=== PATIENT | male | born 1965 | race Caucasian/White ===

== ENCOUNTER 2017-02-21 17:59 | Emergency (ER) | payer BC ==
[~2017-02-21] VITALS: Ht 172.7 cm; Wt 102.1 kg
[~2017-02-21 17:59] MED LIST: VICODIN ES 7501 TAB PO
== END 2017-02-21 20:23 | disposition home or self-care (01) ==
LOC: ED 17:59
DX: M79.652 Pain in left thigh (principal); F10.10 Alcohol abuse, uncomplicated

== ENCOUNTER 2017-04-04 10:07 | Emergency (ER) | payer BC ==
[~2017-04-04] VITALS: Ht 172.7 cm; Wt 102.1 kg
[2017-04-04] MEDS ORDERED: NAPROSYN500 MG PO (11:54)
== END 2017-04-04 12:05 | disposition home or self-care (01) ==
LOC: ED 10:07
DX: M25.562 Pain in left knee (principal)